=== PATIENT | female | born 1995 ===

== ENCOUNTER 2018-11-28 23:29 | Emergency (ER) ==
[2018-11-29 01:48] LABS: Absolute Lymphocytes (CBC) 1.9 K/uL (0.7-4.9); Basophils % 0.6 % (0-1.3); Hematocrit 37.9 % (36.0-45.0); Lymphocytes % 24.1 % (15.3-44.8); MPV 8.9 fL (7.6-11.3)
[2018-11-29 02:01] LABS: ALT/SGPT 17 U/L (12-78); AST/SGOT 16 U/L (15-37); Albumin 4.4 g/dL (3.4-5.0); Alkaline Phosphatase 86 U/L (45-117); BUN Blood Urea Nitrogen 11 mg/dL (7-18); Bicarbonate 30 mmol/L (21-32); Bilirubin Direct < 0.1 mg/dL (0-0.2); Bilirubin Total 0.4 mg/dL (0.2-1.0); Glucose Level 91 mg/dL (74-106); Lipase 164 U/L (73-393); Potassium 3.9 mmol/L (3.5-5.1); Protein, Total 8.1 g/dL (6.4-8.2); Sodium Level 141 mmol/L (136-145)
[2018-11-29 02:32] LABS: Urine Bacteria <20 /HPF (<20); Urine Culture Reflex Order NOT NEEDED; Urine Mucus SLIGHT /HPF (NONE SEEN); Urine RBC <5 /HPF (NONE SEEN)
[2018-11-29 02:33] LABS: Urine Blood NEGATIVE (NEG); Urine Glucose NEGATIVE (NEG); Urine Protein NEGATIVE (NEG); Urine Specific Gravity 1.025 (1.005-1.030)
--- NOTE | 2018-11-29 03:52 | ER ---
Nurse's Notes [facility] Name: Linda Castle Age: 23 yrs Sex: Female : 1995 Arrival Date: 11/28/2018 Time: 23:31 Bed 13 Private MD: Diagnosis: Lower abdominal pain, unspecified;Unspecified ovarian cysts Presentation: 11/28 23:54 Presenting complaint: Patient states: she has been having right lower abdominal pain bb since pain is intermittent denies vomiting or diarrhea states her last BM was yesterday after taking a laxative has not had a BM today and is not having any abdominal pain at this time. Transition of care: patient was not received from another setting of care. Onset of symptoms was November 26, 2018. Risk Assessment: Do you want to hurt yourself or someone else? Patient reports no desire to harm self or others. Initial Sepsis Screen: Does the patient meet any 2 criteria? No. Patient's initial sepsis screen is negative. Does the patient have a suspected source of infection? No. Patient's initial sepsis screen is negative. Care prior to arrival: None. 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 - Social history:: Smoking status: Patient/guardian denies using tobacco. - Ebola Screening: : No symptoms or risks identified at this time. - Family history:: not pertinent. - Hospitalizations: : No recent hospitalization is reported. Screenin/15 01:11 Abuse screen: Denies threats or abuse. Nutritional screening: No deficits noted. ea Tuberculosis screening: No symptoms or risk factors identified. Fall Risk None identified. Assessment: 01:13 General: Appears uncomfortable, Behavior is calm, cooperative, appropriate for age. ea Pain: Complains of pain in abdomen. Neuro: Level of Consciousness is awake, alert, obeys commands, Oriented to person, place, time, situation. Cardiovascular: Patient's skin is warm and dry. Respiratory: Airway is patent Respiratory effort is even, unlabored, Respiratory pattern is regular, symmetrical. GI: Bowel sounds present X 4 quads. Abd is soft and non tender. Derm: Skin is pink, warm \T\ dry. 02:00 Reassessment: Patient and/or family updated on plan of care and expected duration. Pain ea level reassessed. Patient is alert, oriented x 3, equal unlabored respirations, skin warm/dry/pink. 03:25 Reassessment: Patient and/or family updated on plan of care and expected duration. Pain ea level reassessed. Patient is alert, oriented x 3, equal unlabored respirations, skin warm/dry/pink. 04:33 Reassessment: Patient and/or family updated on plan of care and expected duration. Pain ea level reassessed. Patient is alert, oriented x 3, equal unlabored respirations, skin warm/dry/pink. Discharge instruction given to patient, verbalized the understanding of instruction. Pt left ED ambulatory, accompanied by friends, pt tolerating well. Patient denies pain at this time. Vital Signs: 11/28 23:56 BP 130 / 84; Pulse 75; Resp 14 S; Temp 98.5(O); Pulse Ox 100% on R/A; Weight 48.08 kg bb (R); Height 4 ft. 11 in. (149.86 cm) (R); Pain 0/10; 11/29 01:00 BP 94 / 62; Pulse 77; Resp 18; Pulse Ox 98% on R/A; ea 02:00 BP 103 / 73; Pulse 77; Resp 18; Pulse Ox 99% ; ea 03:52 BP 97 / 65; Pulse 67; Resp 18; Temp 98.2; Pulse Ox 99% ; ea 04:15 BP 97 / 68; Pulse 76; Resp 18; Pulse Ox 99% ; ea 11/28 23:56 Body Mass Index 21.41 (48.08 kg, 149.86 cm) bb ED Course: 11/28 23:31 Patient arrived in ED. cf2 23:56 Triage completed. bb 23:56 Arm band placed on Patient placed in waiting room, Patient notified of wait time. bb 11/29 00:37 Jere Mcpherson MD is Attending Physician. rn 00:47 Nichelle Fleming RN is Primary Nurse. ea 01:14 Patient has correct armband on for positive identification. Bed in low position. Call ea light in reach. Side rails up X2. 01:30 Inserted saline lock: 20 gauge in left antecubital area, using aseptic technique. ea 01:40 Radiology exam delayed due to lab results not completed at this time. (BUN/Creatinine) kw1 test not completed at this time. 04:32 No provider procedures requiring assistance completed. IV discontinued, intact, ea bleeding controlled, No redness/swelling at site. Pressure dressing applied. 19:47 CT Abd/Pelvis - IV Contrast Only In Process Unspecified. EDMS Administered Medications: No medications were administered Outcome: 03:51 Discharge ordered by . rn 04:33 Discharged to home ambulatory, with friend. ea 04:33 Condition: stable 04:33 Discharge instructions given to patient, Instructed on discharge instructions, follow up and referral plans. Demonstrated understanding of instructions, follow-up care. 04:36 Patient left the ED. ea Signatures: Dispatcher [employer] EDKaty Lawrence RN RN bb Nieto, Roman, MD MD rn Antunez, Elena, RN RN ea Wilhelm, Kimberly kw1 Johnathon López cf2
--- NOTE | 2018-11-29 03:53 | EDPHYS ---
Physician Documentation [facility] Name: Linda Castle Age: 23 yrs Sex: Female : 1995 Arrival Date: 11/28/2018 Time: 23:31 Bed 13 Private MD: ED Physician Jere Mcpherson HPI: 11/29 01:23 This 23 yrs old Unknown Female presents to ER via Ambulatory with complaints of rn Abdominal Pain. 01:23 The patient presents with abdominal pain right lower quadrant. Onset: The rn symptoms/episode began/occurred 3 day(s) ago. The symptoms do not radiate. Associated signs and symptoms: Pertinent positives: constipation, Pertinent negatives: nausea and vomiting, blood in stools, fever, shortness of breath, vaginal discharge. The symptoms are described as crampy. Modifying factors: The symptoms are alleviated by nothing, the symptoms are aggravated by nothing. Severity of pain: At its worst the pain was mild in the emergency department the pain is unchanged. The patient has not experienced similar symptoms in the past. The patient has not recently seen a physician. Reports lower abd pain, began 3 days ago, + constipation, has been using laxatives, is passing gas. No fever. No blood in stool. . 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 - Social history:: Smoking status: Patient/guardian denies using tobacco. - Ebola Screening: : No symptoms or risks identified at this time. - Family history:: not pertinent. - Hospitalizations: : No recent hospitalization is reported. ROS: 11/29 01:23 Constitutional: Negative for fever, chills, and weight loss, Eyes: Negative for injury, rn pain, redness, and discharge, Cardiovascular: Negative for chest pain, palpitations, and edema, Respiratory: Negative for shortness of breath, cough, wheezing, and pleuritic chest pain, Abdomen/GI: Negative for nausea, vomiting, diarrhea MS/Extremity: Negative for injury and deformity, Skin: Negative for injury, rash, and discoloration, Neuro: Negative for headache, weakness, numbness, tingling, and seizure. Exam: 01:23 Constitutional: This is a well developed, well nourished patient who is awake, alert, rn and in no acute distress. Head/Face: Normocephalic, atraumatic. ENT: MMM Cardiovascular: Regular rate and rhythm. No pulse deficits. Respiratory: No increased work of breathing, no retractions or nasal flaring. Abdomen/GI: soft, mild suprapubic and RLQ tenderness, no rebound MS/ Extremity: Pulses equal, no cyanosis. Neurovascular intact. Full, normal range of motion. Equal circumference. Neuro: Awake and alert, GCS 15, oriented to person, place, time, and situation. Cranial nerves II-XII grossly intact. Motor strength 5/5 in all extremities. Sensory grossly intact. Cerebellar exam normal. Vital Signs: 11/28 23:56 BP 130 / 84; Pulse 75; Resp 14 S; Temp 98.5(O); Pulse Ox 100% on R/A; Weight 48.08 kg bb (R); Height 4 ft. 11 in. (149.86 cm) (R); Pain 0/10; 11/29 01:00 BP 94 / 62; Pulse 77; Resp 18; Pulse Ox 98% on R/A; ea 02:00 BP 103 / 73; Pulse 77; Resp 18; Pulse Ox 99% ; ea 03:52 BP 97 / 65; Pulse 67; Resp 18; Temp 98.2; Pulse Ox 99% ; ea 04:15 BP 97 / 68; Pulse 76; Resp 18; Pulse Ox 99% ; ea 11/28 23:56 Body Mass Index 21.41 (48.08 kg, 149.86 cm) bb MDM: 00:37 Patient medically screened. rn 03:50 Differential diagnosis: appendicitis, non-specific abd pain, Ureterolithiasis, urinary rn tract infection, ovarian cyst. Data reviewed: vital signs, nurses notes, lab test result(s), radiologic studies, CT scan, and as a result, I will discharge patient. Counseling: I had a detailed discussion with the patient and/or guardian regarding: the historical points, exam findings, and any diagnostic results supporting the discharge/admit diagnosis, lab results, radiology results, the need for outpatient follow up, to return to the emergency department if symptoms worsen or persist or if there are any questions or concerns that arise at home. Response to treatment: the patient's symptoms have markedly improved after treatment, and as a result, I will discharge patient. Special discussion: Based on the patient's Hx, exam, and Dx evaluation, there is no indication for emergent surgery or inpatient Tx. It is understood by the patient/guardian that if the Sx's persist or worsen they need to return immediately for re-evaluation. I discussed with the patient/guardian in detail that at this point there is no indication for admission to the hospital. It is understood, however, that if the symptoms persist or worsen the patient needs to return immediately for re-evaluation. ED course: CT shows normal appendix, no acute findings other than left paraovarian cyst. Neg UPT. . 11/29 00:42 Order name: Basic Metabolic Panel 11/29 00:42 Order name: CBC with Diff 11/29 00:42 Order name: Hepatic Function 11/29 00:42 Order name: Lipase 11/29 00:42 Order name: Urine Microscopic Only 11/29 02:02 Order name: Basic Metabolic Panel; Complete Time: 02:42 [facility] 11/29 02:02 Order name: Liver (Hepatic) Function; Complete Time: 02:42 [facility] 11/29 02:02 Order name: Lipase; Complete Time: 02:42 [facility] 11/29 02:02 Order name: CBC with Automated Diff; Complete Time: 02:42 [facility] 11/29 02:22 Order name: Urine Dipstick--Ancillary (enter results) [facility] 11/29 02:22 Order name: Urine --Ancillary (enter results) [facility] 11/29 03:04 Order name: Urine Microscopic Only; Complete Time: 03:21 [facility] 11/29 03:04 Order name: Urine --Ancillary; Complete Time: 03:21 [facility] 11/29 03:04 Order name: Urine Dipstick-Ancillary; Complete Time: 03:21 [facility] 11/29 00:42 Order name: IV Saline Lock; Complete Time: 01:11 11/29 00:42 Order name: Labs collected and sent; Complete Time: : 11/29 00:42 Order name: CT Abd/Pelvis - IV Contrast Only 11/29 00:42 Order name: Urine Test (obtain specimen); Complete Time: :13 11/29 00:42 Order name: Urine Dipstick-Ancillary (obtain specimen); Complete Time: 01: rn Administered Medications: No medications were administered Disposition: 11/29/18 03:51 Discharged to Home. Impression: Lower abdominal pain, unspecified, Unspecified ovarian cysts. - Condition is Stable. - Discharge Instructions: Abdominal Pain, Adult, Ovarian Cyst. - Prescriptions for Diclofenac Sodium 75 mg Oral Tablet, Delayed Release (E.C.) - take 1 tablet by ORAL route 2 times per day; 20 tablet. - Medication Reconciliation Form, Thank You Letter, Antibiotic Education, Prescription Opioid Use form. - Follow up: Private Physician; When: As needed; Reason: Recheck today's complaints, Re-evaluation by your physician. - Problem is new. - Symptoms have improved. Signatures: Dispatcher [employer] EDKaty Lawrence RN RN bb Nieto, Roman, MD MD rn Antunez, Elena, RN RN ea Corrections: (The following items were deleted from the chart) 04:36 03:51 11/29/2018 03:51 Discharged to Home. Impression: Lower abdominal pain, ea unspecified; Unspecified ovarian cysts. Condition is Stable. Forms are Medication Reconciliation Form, Thank You Letter, Antibiotic Education, Prescription Opioid Use. Follow up: Private Physician; When: As needed; Reason: Recheck today's complaints, Re-evaluation by your physician. Problem is new. Symptoms have improved. rn
--- NOTE | 2018-11-30 12:09 | RAD REPORT ---
EXAM DESCRIPTION: CT ABDOMEN PELVIS WITH IV CONTRAST COMPARISON: None CLINICAL HISTORY: Lower abdominal pain TECHNIQUE: Multiple helical axial images were obtained through the abdomen and pelvis using intraven ous contrast. Coronal and sagittal reformatted images were obtained. All CT scans at this facility use dose modulation, iterative reconstruction, and/or weight-based dosi ng when appropriate to reduce radiation dose to as low as reasonably achievable. FINDINGS: Lung bases: Appear unremarkable. Liver: Homogenous attenuation is noted. Gallbladder/biliary: Appears unremarkable Pancreas: Unremarkable. No evidence of ductal enlargement. Spleen: Appears unremarkable. No splenomegaly. Adrenals: Unremarkable. Kidneys and ureters: No evidence of hydronephrosis. Normal enhancement. Bladder: Unremarkable. Pelvic organs: There is a 2.5 cm thin-walled left adnexal cyst appearing separate from the left ovary . Both ovaries appear normal in size. Uterus appears grossly unremarkable. Bowel: No evidence of bowel obstruction. No bowel wall thickening. Appendix appears unremarkable. Vasculature: Unremarkable. Peritoneum: No free air. No significant free fluid. Lymph nodes: Unremarkable. Soft tissues: Unremarkable. Bones: Unremarkable. IMPRESSION: 1. Left adnexal thin-walled 2.5 cm cystic-appearing structure appears separate from the left ovary, possibly representing a paraovarian cyst. Ectopic is less favored given the arnie earance, however clinical correlation recommended. Consider follow-up with ultrasound. 2. Otherwise, no obvious acute process within the abdomen or pelvis. Electronically signed by: Anton Livingston MD 11/29/2018 3:35 AM CDT Due to temporary technical issues with the PACS/Fluency reporting system, reports are being signed by the in house radiologist as a courtesy to ensure prompt reporting. The interpreting radiologist is f ully responsible for the content of the report.
== END 2018-11-29 04:36 | disposition home or self-care (01) ==
LOC: ER 23:29
DX: N83.209 Unspecified ovarian cyst, unspecified side (principal)
CPT/HCPCS: 36415; 74177; 80048; 80076; 81003; 81015; 81025; 83690; 85025; 99283; Q9967